=== PATIENT | male | born 2000 | race Caucasian/White ===

== ENCOUNTER 2020-11-17 12:50 | Emergency (ER) | payer MEDICAID ==
[~2020-11-17] VITALS: Ht 185.4 cm; Wt 74.8 kg
[~2020-11-17 12:50] MED LIST: STRATTERA40 MG PO
== END 2020-11-17 14:06 | disposition home or self-care (01) ==
LOC: ED 12:50
DX: S62.366A Nondisplaced fracture of neck of fifth metacarpal bone, right hand, initial encounter for closed fracture (principal); Z88.8 Allergy status to other drugs, medicaments and biological substances; W23.1XXA Caught, crushed, jammed, or pinched between stationary objects, initial encounter
CPT/HCPCS: 73130; 99283-25

== ENCOUNTER 2020-11-26 14:42 | Emergency (ER) | payer MEDICAID ==
[~2020-11-26] VITALS: Ht 185.4 cm; Wt 74.8 kg
--- OUTSIDE RECORDS SUMMARY | 2020-11-26 14:50 | XMS ---
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 PHONE: [phone] POPE[facility] PHONE: [phone] TEOFILO BESS Clinic/Center: Federally Qualified 02/20/2019-[facility] ([facility] - PHONE: [phone] BEBE TENORIO Physician Cafeteria Cook: [facility] PHONE: Unknown CHRIS JANE Entry Examiner/Lunch Cook Current FOR[facility]LY [facility] TEAM PHONE: Unknown Libra has no Care Guidelines for this patient. [place] VISIT COUNT (12 MO.) 1 Mat Gruber 1 [facility] 1 [facility] 2 KATHY Bolivar TOTAL 5 NOTE: Visits indicate total known visits. ED/UCC VISIT TRACKING (12 MO.) 11/26/2020 14:42 [facility] [place] TYPE: Emergency COMPLAINT: - RECAST R ARM 11/17/2020 12:50 [facility] [place] TYPE: Emergency COMPLAINT: - RIGHT HAND INJURY DIAGNOSES: - Caught, crushed, jammed, or pinched between stationary objects, initial encounter - Allergy status to other drugs, medicaments and biological substances - Nondisplaced fracture of neck of fifth metacarpal bone, right hand, initial encounter for closed fracture 07/13/2020 09:28 [facility] MARINA Owen TYPE: Emergency COMPLAINT: - left knee pain DIAGNOSES: - Knee Pain - Cutaneous abscess, unspecified - left knee pain 02/18/2020 11:49 [facility]mani [place] TYPE: Emergency DIAGNOSES: - Abdominal Pain - Nausea with vomiting, unspecified 12/30/2019 18:17 [facility]. TYPE: Emergency COMPLAINT: - Abdominal Pain DIAGNOSES: - Acute gastritis without bleeding - Hematuria - Epigastric pain - Abdominal Pain INPATIENT VISIT TRACKING (12 MO.) No inpatient visits to display in this time frame [email or web address]
== END 2020-11-26 15:42 | disposition home or self-care (01) ==
LOC: ED 14:42
DX: S62.336D Displaced fracture of neck of fifth metacarpal bone, right hand, subsequent encounter for fracture with routine healing (principal); F17.200 Nicotine dependence, unspecified, uncomplicated; Z88.8 Allergy status to other drugs, medicaments and biological substances
CPT/HCPCS: 29125; 99282-25